=== PATIENT | male | born 1950 | race Caucasian/White ===

== ENCOUNTER → 2023-09-28 06:38 | Day surgery (SDC) | payer OTHER, SELFPAY ==
[2023-09-28 07:32] VITALS: BMI 26.3
[2023-09-28 07:32] LABS: Glucose - Point of Care 106 mg/dl (70-99)
== END ==
LOC: CATH 06:38
PROVIDERS: ATTENDING PHYSICIAN Internal Medicine Cardiovascular Disease; FAMILY PHYSICIAN Family Medicine; OTHER PHYSICIAN Internal Medicine Interventional Cardiology
DX: I25.5 Ischemic cardiomyopathy (principal); I08.8 Other rheumatic multiple valve diseases; I08.3 Combined rheumatic disorders of mitral, aortic and tricuspid valves
CPT/HCPCS: 93312; 93320; 93325; 82962

== ENCOUNTER 2023-10-03 05:53 | Day surgery (SDC) | payer OTHER, SELFPAY ==
[2023-09-18 11:03] VITALS: BMI 26.3
[2023-09-18 11:25] LABS: % Basophils 0.7 % (0-2); % Eosinophils 6.4 % (0-6); % Immature Granulocytes 0.3 % (0-0.5); % Monocytes 6.3 % (1.7-9.3); % Neutrophils 68.3 % (42.2-75.2); Absolute Basophils 0.1 10^3/uL (0-0.2); Absolute Eosinophils 0.5 10^3/uL (0-0.7); Absolute Lymphocytes 1.3 10^3/uL (1.2-3.4); Absolute Monocytes 0.5 10^3/uL (0.1-0.6); Hematocrit 37.6 % (39.0-52.0); Hemoglobin 12.4 g/dL (13.0-18.0); Mean Corpuscular Hgb 28.1 pg (27.0-31.0); Mean Corpuscular Volume 85.3 fL (80.0-94.0); Mean Platelet Volume 9.7 fL (7.4-10.4); Nucleated Red Blood Cells % 0 % (-); Platelet Count 227 10^3/uL (130-400); Red Blood Cell Count 4.41 10^6/uL (4.70-6.10); Red Cell Dist. Width 15.4 % (11.5-14.5); White Blood Cell Count 7.3 10^3/uL (4.8-10.8)
[2023-09-18 11:40] LABS: ALT (SGPT) 13 U/L (0-50); AST (SGOT) 19 U/L (17-59); Albumin 4.5 g/dl (3.5-5.0); Alkaline Phosphatase 107 U/L (38-126); Blood Urea Nitrogen 22 mg/dl (9-20); Calcium 9.5 mg/dl (8.4-10.2); Carbon Dioxide 28 mmol/L (22-30); Chloride 106 mmol/L (98-107); Estimated Creatinine Clearance 41 ml/min; Glucose 118 mg/dl (70-99); Magnesium 2.2 mg/dl (1.6-2.3); Potassium 4.7 mmol/L (3.5-5.1); Sodium 139 mmol/L (135-145); Total Bilirubin 0.6 mg/dl (0.2-1.3); Total Protein 7.1 g/dl (6.3-8.2); eGFR 34.81
[2023-09-18 11:42] LABS: INR 1.09
[2023-10-03] VITALS (10 sets, daily range): BP systolic 139–158; BP diastolic 71–85; BMI 26.5
[2023-10-03 06:51] LABS: Glucose - Point of Care 126 mg/dl (70-99)
[2023-10-03 09:20] LABS: ACT-LR - POC 268 Seconds (116-155)
[2023-10-03 09:42] LABS: ACT-LR - POC 277 Seconds (116-155)
--- NOTE | 2023-10-03 10:56 | ITS.CL.ABL ---
Transcript Clerk - Ablation
Ablation
Procedure Report:
ELECTROPHYSIOLOGY ABLATION STUDY
DATE:: October 03, 2023 REFERRING: Dr. JAKE Melton
INDICATION: Paroxysmal supraventricular tachycardia in the form of atrial fibrillation. Also noted to have paroxysmal atrial flutter
HISTORY: See H and P. Recent depressed ejection fraction after implantation of a dual-chamber pacemaker with a paradoxical response and EF from a left bundle branch area lead. Multivessel stenting and paroxysmal atrial arrhythmias refractory to
Multaq as well as elevated bleeding risk. Dr. Melton and referred him for evaluation for ablation, potential watchman, and potential extraction with reimplantation of PARACHUTE MENDER-D.
ANTIARRHYTHMIC DRUG: Dronedarone
PRE-PROCEDURE JC: No atrial thrombus with ejection fraction 15 to 20% which is new lead depressed
PRESENTING RHYTHM: Atrial pacing with frequent PVCs and morphology similar to the paced morphology
'TIME-OUT': called and confirmed.
SEDATION/ANESTHESIA: provided via the anesthesia department using general anesthesia (LMA).
INTRAVENOUS/ARTERIAL ACCESS:
Right femoral venous - 8Fr
Left femoral venous - 8 Fr, 6 Fr
[id number] stitch to the right and left groins
CHADS-VASC Score:
HAS-Bled Score
PROCEDURE:
1. A decapolar CS catheter was placed within the CS for mapping and pacing. This was also used as the reference catheter for the 3-D map. Utilizing a 10 Bulgarian steerable sheath we performed ablation at the CTI from valve to IVC at 30 W, 42
degrees, 10 to 20 g force and up to 20 second lesions. Bidirectional block was then obtained with interest was conduction time of 190 ms. This was checked at the end of the case with persistent bidirectional block.
2. The intracardiac ultrasound catheter was positioned in the RA to identify the FO for targeting of transseptal puncture, assist in identification of the pulmonary vein ostia, monitoring pre and post ablation pulmonary vein flow velocities,
monitoring for 'bubble' formation during RF application as a sign of thermal injury, and to monitor for pericardial effusion during mapping and ablation procedure. Left atrial size, LV ejection fraction, and pulmonary vein flows were monitored
pre and post ablation procedure. The other valves were inspected and found to be free of significant regurgitation or stenosis.
3. Half of the calculated heparin bolus was administered prior to the first transeptal puncture. Transseptal puncture was performed to diagnose RA and LA pressure so that safety of LA mapping and ablation could be further assessed, and to access
the left atrium and pulmonary veins for mapping and ablation. This entailed advancing an 10 Bulgarian steerable sheath with dilator into the superior vena cava and withdrawing both (monitoring intracardiac ultrasound, fluoroscopy and tip pressure)
with the tip oriented toward the atrial septum. The fossa ovalis was engaged (indicated by sudden displacement of the sheath tip as well as tenting of the fossa seen on intracardiac ultrasound). Left atrial access required a pass with the
Brockenbrough needle extended. Left atrial catheter position was confirmed by pressure monitoring (RA mean pressure 8 mm Hg and LA mean presure 12 mm Hg), LA saturation ( 99 %), as well as fluoroscopy. The sheath was advanced over the dilator and
positioned in the left atrium. The remainder of the calculated heparin bolus was administered and heparin was
infused to maintain ACT at 300 -350 seconds throughout the case.
4. RA pacing was performed via the proximal decapolar poles and LA pacing was performed via the distal decapolr poles.
5. A quadrapolar catheter was first positioned at the His position for His Bundle recording which was tagged via the 3-D Navex sytem, and then passed to the RVA for RV pacing and recording.
6. The ablation catheter was positioned through one of the transeptal seaths and a 20 pole ring mapping catheter was positioned through the second seath into the LA and then the ostia of the LIPV, LSPV, RSPV and the RIPV.
7. Next, a 3-D map was created using Navex. A 3-D reconstructed CT image was compared to the 3-D Navex map to assist in anatomic interpretation, mapping and ablation. The CT image and the NavX image were fused.
8. All 4 pulmonary veins were isolated with an additional extrapulmonary vein lesion given to the roof of the left superior pulmonary vein at the posterior wall for 2 minutes. The pulmonary vein lesions were given for 3 minutes less pulmonary
vein, 2 distinct 3-minute freezing applications left inferior pulmonary vein, 1 distinct 3 and 1 distinct 2.5-minute freezing application of the right superior pulmonary vein and 1 distinct 3 minutes into the freezing application to the right
inferior pulmonary vein. Entrance next block was confirmed and bidirectional block was confirmed within the procedure. The patient was noninducible for any other tachyarrhythmias.
9. We changed programming for the patient's pacemaker than the procedure as pacing at a more rapid rate appeared to suppress the patient's frequent PVCs. We adjusted the programmed DDDR 75-1 30 with suppression of the majority of his PVCs.
Morphology of the PVC was similar to the paced morphology suggesting perhaps irritability from the recent RV lead implantation. 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
considered in the future will need extraction of current hardware and reimplantation.
TOTAL FLOURO TIME: 16.7 minutes
TOTAL RF DURATION: 8 minutes
REVERSAL OF HEPARIN: 35 mg of protamine, slow IV administration
COMPLICATIONS:
None
Intracardiac US shows no pericardial effusion post ablation.
SUMMARY:
Complex left atrial mapping and ablation.
CTI flutter ablation with bidirectional block. Pulm vein isolation of all 4 pulmonary veins. Extrapulmonary lesion to the roof of the left for pulmonary vein outside the left for pulmonary vein as above.
RECOMMENDATIONS:
1. Admit to monitored bed.
2. Resume anticoagulation
3. Discontinue Multaq
4. Repeat echocardiogram in 2 months to assess ejection fraction. We adjusted the patient's device programming to suppress PVCs although has had a detrimental response to the LV septum pacing. Hopefully with discontinuing Multaq, adjusting device
programming to minimize PVCs, and elimination of his age arrhythmias his ejection fraction will improve. 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
traditional coronary sinus LV lead given his detrimental response to prior LV septal pacing. We will assess this at the office visit in 2 months after his ultrasound and I will touch base with Dr. Melton regarding an echo in 6 to 8 weeks.
Copy to: Dr. JAKE Melton
--- NOTE | 2023-10-03 14:33 | W.PN.UPDATE ---
Update Note
Progress Note Update
73 yo WM s/p PVI (same day). He feels good, no cp, sob, radha clears, voiding, amb w/o dizziness, b/l groins c/d/i no HT, EKG AV dual paced. He will stop Multaq and continue metoprolol. He will take his Eliquis at 4pm at home. Activity restrictions
reviewed. He will f/u Dr. Melton in6-8 weeks and have his repeat Echo. He is for d/c home after 3pm.
SUMMARY:
Complex left atrial mapping and ablation.
CTI flutter ablation with bidirectional block. Pulm vein isolation of all 4 pulmonary veins. Extrapulmonary lesion to the roof of the left for pulmonary vein outside the left for pulmonary vein as above.
RECOMMENDATIONS:
1. Admit to monitored bed.
2. Resume anticoagulation
3. Discontinue Multaq
4. Repeat echocardiogram in 2 months to assess ejection fraction. We adjusted the patient's device programming to suppress PVCs although has had a detrimental response to the LV septum pacing. Hopefully with discontinuing Multaq, adjusting device
programming to minimize PVCs, and elimination of his age arrhythmias his ejection fraction will improve. 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
traditional coronary sinus LV lead given his detrimental response to prior LV septal pacing. We will assess this at the office visit in 2 months after his ultrasound and I will touch base with Dr. Melton regarding an echo in 6 to 8 weeks.
Copy to: Dr. JAKE Melton
== END 2023-10-03 15:00 | disposition home or self-care (01) ==
LOC: CATH 05:53
PROVIDERS: ATTENDING PHYSICIAN Internal Medicine Cardiovascular Disease; FAMILY PHYSICIAN Family Medicine
DX: I48.0 Paroxysmal atrial fibrillation (principal); I48.92 Unspecified atrial flutter; I25.10 Atherosclerotic heart disease of native coronary artery without angina pectoris; I10 Essential (primary) hypertension; E11.9 Type 2 diabetes mellitus without complications; K21.9 Gastro-esophageal reflux disease without esophagitis; Z86.010 Personal history of colon polyps; Z79.01 Long term (current) use of anticoagulants
CPT/HCPCS: C1766; C1894; C1730; C2630; C1892; C1759; 36005; 36415; 75820; 76937; 80053; 82962; 83735; 85025; 85347; 85610; 86850; 86900; 86901; 93005; 93655; 93656; C1733; Q9967

== ENCOUNTER → 2024-06-16 09:00 | Outpatient (REF) | payer OTHER, MEDICARE, SELFPAY ==
[2024-06-16 09:10] VITALS: BMI 27.0
[2024-06-16 09:30] LABS: % Basophils 0.5 % (0-2); % Eosinophils 3.3 % (0-6); % Immature Granulocytes 0.3 % (0-0.5); % Lymphocytes 15.3 % (20.5-51.1); % Monocytes 7.9 % (1.7-9.3); % Neutrophils 72.7 % (42.2-75.2); Absolute Eosinophils 0.3 10^3/uL (0-0.7); Absolute Lymphocytes 1.2 10^3/uL (1.2-3.4); Absolute Monocytes 0.6 10^3/uL (0.1-0.6); Absolute Neutrophils 5.6 10^3/uL (1.4-6.5); Hemoglobin 14.9 g/dL (13.0-18.0); Mean Corp Hgb Conc. 33.9 g/dL (33.0-37.0); Mean Corpuscular Hgb 28.7 pg (27.0-31.0); Mean Corpuscular Volume 84.8 fL (80.0-94.0); Mean Platelet Volume 9.5 fL (7.4-10.4); Nucleated Red Blood Cells % 0 % (-); Platelet Count 233 10^3/uL (130-400); Red Blood Cell Count 5.19 10^6/uL (4.70-6.10); Red Cell Dist. Width 12.9 % (11.5-14.5); White Blood Cell Count 7.7 10^3/uL (4.8-10.8)
[2024-06-16 09:36] LABS: INR 1.03; PT 13.8 Sec (11.4-14.6)
[2024-06-16 09:49] LABS: ALT (SGPT) 12 U/L (0-50); AST (SGOT) 18 U/L (17-59); Albumin 4.1 g/dl (3.5-5.0); Alkaline Phosphatase 142 U/L (38-126); Blood Urea Nitrogen 16 mg/dl (9-20); Calcium 9.1 mg/dl (8.4-10.2); Carbon Dioxide 29 mmol/L (22-30); Chloride 104 mmol/L (98-107); Estimated Creatinine Clearance 58 ml/min; Glucose 141 mg/dl (70-99); Potassium 4.4 mmol/L (3.5-5.1); Sodium 143 mmol/L (135-145); Total Bilirubin 0.6 mg/dl (0.2-1.3); Total Protein 6.8 g/dl (6.3-8.2); eGFR 53.07
--- NOTE | 2024-06-26 15:29 | W.PN.UPDATE ---
Update Note
Progress Note Update
Had a phone conversation on Sunday 06/24 with Mr. Evangelista and left a message with his .
I had a follow up conversation with Mr. Evangelista on 06/26 to discuss options. He reiterated his desire to pursue watchman and extraction. I in past have presented alternative option of JACOB clip/surgical LV lead and at this time he is not interested in
pursuing. Communicated our ongoing internal discussions to figure out how to facilitate his insurance issues (as best I can understand) and complete his JACOB implant.
We are re-discussing tomorrow and will keep patient//referring physician (Dr. Melton) in the loop.
== END ==
LOC: SDSPAT 09:00
PROVIDERS: ATTENDING PHYSICIAN Internal Medicine Cardiovascular Disease; FAMILY PHYSICIAN Family Medicine; OTHER PHYSICIAN Internal Medicine Interventional Cardiology
DX: I48.0 Paroxysmal atrial fibrillation (principal)
CPT/HCPCS: 36415; 80053; 85025; 85610; 86850; 86900; 86901; 87070; 93005

== ENCOUNTER → 2024-09-24 13:47 | Outpatient (REF) | payer OTHER, SELFPAY | LOC: HWRCS 13:47 | PROVIDERS: ATTENDING PHYSICIAN Internal Medicine Cardiovascular Disease; FAMILY PHYSICIAN Family Medicine | DX: I50.22 Chronic systolic (congestive) heart failure (principal) | CPT/HCPCS: 93306 ==

== ENCOUNTER 2024-09-26 07:44 | Day surgery (SDC) | payer OTHER, SELFPAY ==
[2024-09-19 10:35] VITALS: BMI 27.7
[2024-09-19 11:23] LABS: % Basophils 0.8 % (0-2); % Eosinophils 6.1 % (0-6); % Immature Granulocytes 0.2 % (0-0.5); % Lymphocytes 21.6 % (20.5-51.1); % Neutrophils 62.3 % (42.2-75.2); Absolute Basophils 0.1 10^3/uL (0-0.2); Absolute Eosinophils 0.4 10^3/uL (0-0.7); Absolute Lymphocytes 1.4 10^3/uL (1.2-3.4); Absolute Monocytes 0.6 10^3/uL (0.1-0.6); Hematocrit 44.3 % (39.0-52.0); Mean Corp Hgb Conc. 33.9 g/dL (33.0-37.0); Mean Corpuscular Hgb 29.3 pg (27.0-31.0); Mean Corpuscular Volume 86.5 fL (80.0-94.0); Mean Platelet Volume 9.4 fL (7.4-10.4); Nucleated Red Blood Cells % 0 % (-); Platelet Count 181 10^3/uL (130-400); Red Blood Cell Count 5.12 10^6/uL (4.70-6.10); Red Cell Dist. Width 12.8 % (11.5-14.5); White Blood Cell Count 6.4 10^3/uL (4.8-10.8)
[2024-09-19 11:37] LABS: ALT (SGPT) 13 U/L (0-50); AST (SGOT) 18 U/L (17-59); Alkaline Phosphatase 120 U/L (38-126); Blood Urea Nitrogen 13 mg/dl (9-20); Calcium 9.3 mg/dl (8.4-10.2); Carbon Dioxide 31 mmol/L (22-30); Chloride 103 mmol/L (98-107); Estimated Creatinine Clearance 54 ml/min; Glucose 117 mg/dl (70-99); INR 1.13; PT 14.8 Sec (11.4-14.6); Potassium 4.7 mmol/L (3.5-5.1); Sodium 139 mmol/L (135-145); Total Bilirubin 1.1 mg/dl (0.2-1.3); Total Protein 6.7 g/dl (6.3-8.2); eGFR 48.85
[2024-09-26] VITALS (11 sets, daily range): BP systolic 110–177; BP diastolic 63–91; BMI 27.8
[2024-09-26 08:32] LABS: Glucose - Point of Care 134 mg/dl (70-99)
--- NOTE | 2024-09-26 08:37 | W.ICD.CONTRA ---
Post ICD/CERTIFIED VETERINARY TECHNICIAN-D
-
History of NC?: Yes
LV Function
Left ventricular function study result?: Ejection Fraction >35% - <40%
ACEI/ARB/ARNI
Patient already on ACEI/ARB/ARNI: Yes
Beta-Delmer
Patient already on Beta Delmer: Yes
--- NOTE | 2024-09-26 12:50 | ITS.CL.ICD ---
Electrician Telephone - ICD
Implantable Cardioverter Defibrillator
Procedure Report:
BiV BANQUET BARTENDER-D
Upgrade from dual chamber PPM to BANQUET BARTENDER-D with ICD Placement:
Mr. Evangelista is a 74 yrs old gentleman with complete heart block s/p dual chamber PPM on 01/10/2023 with severe cardiomyopathy and LVEF od 30% in NYHA class III symptoms on maximally tolerated medical therapy for over 6 months is pacemaker dependent with
100% RV pacing is recommended a primary prevention ICD and BANQUET BARTENDER. He is in need for a BiV pacing and is here in EP lab for an upgrade to cardiac resynchronization therapy.
He has chronic systolic heart failure, due to mixed cardiomyopathy class III CHF despite maximal medical therapy with dropping and LVEF from 55% to 30% with 100% RV paced rhythm. The patient's life expectancy exceeds one year.
Given his persistent severe LV systolic dysfunction (LVEF of 30%) with 100% paced rhythm, he is in need for a BiV pacing and is here in EP lab for an upgrade to cardiac resynchronization therapy with defibrillator (BANQUET BARTENDER-D).
Indications: 100% RV paced rhythm with Heart failure with reduced ejection fraction with NYHA class III symptoms.
Date of the Procedure: 09/26/2024
Pre-Operative Diagnosis: Mixed cardiomyopathy and severe systolic heart failure and pacemaker dependent
Post-Operative Diagnosis: Mixed cardiomyopathy and severe systolic heart failure and pacemaker dependent
Procedure Performed: UPGRADE to BANQUET BARTENDER-D FROM DUAL CHAMBER PACEMAKER.
Performing Physician:
Dawit Narayan MD
Anesthesia:
See anesthesia records
Detailed Description of the Procedure:
The patient was identified using hospital identification and informed consent obtained for the procedure. The risks were explained to the patient and the family including, but not limited to: Bleeding, infection, arrhythmia, stroke,
vascular/cardiac/lung puncture, surgery, pacemaker dependency/device malfunction. All questions were answered.
A surgical pause was performed in accordance with hospital regulations. Anesthesia service provided sedation as reported separately. Antibiotics administered IV for risk of bacterial colonization. After obtaining informed and written consent, the
patient was brought to the electrophysiology laboratory.
The PPM was interrogated and was 100% paced with PPM dependency. The PPM was switched to DOO for the procedure.
A timeout was performed immediately before the procedure. The left chest was prepped from the nipple to the angle of the jaw with chlorhexidine, and draped following sterile technique in usual routine.�
A peripheral venogram was done that showed axillary vein occluded with collaterals. The decision was made to proceed with venoplasty.
Following infiltration with local anesthetic subcutaneously using 1% lidocaine / bupivacaine. The axillary vein was accessed using micropuncture but guidewire could not be crossed through the occluded section.
The old PPM generator was accessed and the adhesions were removed with care to avoid damage to the leads. The PPM capsule was cut to access the generator. It was removed from the body. The Weitlaner retractor was placed in the incision and used as
access to skin for unipolar pacing.
Axillary vein and Subclavian vein Venoplasty:
The subclavian vein was accessed beyond the occluded vein using a micropuncture apparatus just below the clavicle. The guidewire was placed to the SVC and to the IVC. There was extensive scarring present and a sheath could not be advanced. The
scarring was cut using bovie and plasma blade.
Then using a cook needle, another access was obtained from the pocket to the areaof the subclavian that was opened. A sheath was not able to go over the guidewire. Using various dilators and sheaths, the fibrotic tissue was slowly dilated to
accommodate the 12Fr dilator. A 9Fr peelaway sheath was then placed over the guidewire to the venous system.
ICD placement:
The right ventricular defibrillator lead was advanced into the RV cavity and secured in RV apical septal position with an active fixation technique. There was excellent sensing, pacing, and impedance from the leads, with no diaphragmatic stimulation
at 10 V output.�Bovie cautery, antibiotics, and fluoroscopy were used.
The ICD lead was secured to the underlying fascia at the entry site using 0-silk suture around the sleeves.
During pacing, QRS complex was favorable, with a narrow QRS configuration during BiV pacing. It was deemed ideal for biventricular pacing. No diaphragmatic stimulation was noted at maximal output pacing at any poles. The threshold was below 1V and
was deemed acceptable.
The guiding sheath was removed from the vein and then from the body without change in lead position, impedance, sensing, or capture. Short VT interval permitted nonadaptive BANQUET BARTENDER pacing with BiV pacing. The lead was sutured to the underlying
pectoralis fascia with 2-0 Ethibond stitches.
The LV lead was placed into the new pulse generator and was paced. The old leads were individually removed and tested. The leads were attached to the pulse generator in standard configuration with acceptable sensing and threshold parameters.
Pocket revision:
The new ICD generator is bigger and previous pocket was sclerosed. The capsule of the old pocket was cut and the pocket was extended to accommodate the bigger generator. Excess scar tissue was removed. The pocket was irrigated with antibiotic
solution; the pocket was inspected with no active bleeding noted. The device and the leads were placed in the pocket.
A Tyrx antibiotics envelop was placed around the generator and the leads.
Deep subcutaneous tissues were closed with 2-0 VLoc sutures; intermediate subcutaneous tissue was reopposed using a running 2-0 V loc suture, and the dermis was reopposed using a running 4-0 V loc subcuticular suture.
Sponge counts / sharp counts were appropriate.
Procedure End:
The procedure was tolerated well. Aquacel bandaged was applied.
A pressure dressing was applied.
Estimated Blood loss:
5 cc
Specimens Removed:
No cultures and no specimens were obtained. No intraoperative pathology was identified.
Urine output:
None
Packs / Drains/ Tubes:
None
Instrument / Sponge Count Correct:
Yes
Flouro time:
15.8 min / 3.05Ecas1
Complications of the Procedure:
None
Condition of Patient at Time of Transfer:
Hemodynamically stable with no neurological or vascular compromise.
Device information:�
Generator: [email or web address]; Model: RFLB5E0; Serial # [id number]
����������� Implanted: 09/26/2024
����������� Atrial Lead: [employer]; Model: 5076-52; Serial # [id number]
����������������������� Measured data in the right atrium was sensing of 3.0 mV and, impedance of 418ohms and threshold of 0.75 V at 0.4ms�
����������� Implanted: 01/10/2023
����������� LV conduction system pacing lead: Medtronic; Model: 3830-69; Serial # [id number]
����������������������� Measured data on the LBB lead was impedance of 632 ohms and threshold of 0.5 V at 0.4ms
����������� Implanted: 01/10/2023
����������� RV Lead: Medtronic; Model: 6935M-62; Serial # [id number]
����������������������� Measured data on the RV lead no sensing with no underlying rhythm, impedance of 817 ohms and threshold of 0.5 V at 0.4ms. HVB impedance: 67 ohm
����������� Implanted: 09/26/2024
PROGRAMMING PARAMETERS:�
Mk parameter settings were DDD 60-130 �
����������� Paced AV interval: 130ms
����������� Sensed AV interval: 100 ms.
����������� Rate Adaptive A-V Interval: on
Tachy parameter settings:
����������� SVT discrimination: On
����������� AF/AFl: On
����������� SVT limit: 260 msec
����������� VT zone:
Slow VT: 150-188bpm - Monitor
����������������������� Fast VT/ VF: >188 bpm - Shock� x6
�
Summary:
Successful upgrade from dual chamber pacemaker to BANQUET BARTENDER-D � Medtronic defibrillator
Successful venoplasty of axillary and subclavian vein.
Results/Recommendations:
-Please follow up CXR�
1. Please discharge patient with adequate pain control�
Instructions to be given to patient:�
- Please follow up with [facility] at [address] [place] [address] ([phone]) to get your wound checked in 2 weeks of your discharge.
- Do not wet incision site until after it is evaluated at cardiology clinic. No baths or showers until then. Sponge baths / showers are OK but dab dry the dressing after it is wet.�
- Allow 'steri strips' to fall off on their own�
- Do not lift left elbow above shoulder, particularly with sudden jerking movements, for 1 month�
- Do not lift anything weighing more than 5 pounds with the left arm for 1 month�
- If you notice any fevers, shortness of breath, lightheadedness, chest pain, or worsening swelling in the wound site, please contact the arrhythmia clinic, contact your heat treater helper, or present to the hospital for evaluation.�
Dawit Narayan MD
Electrophysiology
--- NOTE | 2024-09-26 13:46 | CM ---
Chart reviewed. Patient is independent of ADLS, lives with his in a 2 [address], 3 [address]UNJAN, 0 DME. Plan is for the patient to return home. CM to follow
--- NOTE | 2024-09-26 16:40 | PTCARENOTE ---
received pt post ICD. left chest wall dressing cdi. pt offers no complaints at this time. pt is av paced on the monitor, hr in the 60s, vss. resting comfortably in bed. at bedside visiting. both educated on plan of care and verbalized
understanding. call sanchez within reach.
[2024-09-26] MEDS: ANCEF 5 IV (17:40)
--- NOTE | 2024-09-26 20:00 | PTCARENOTE ---
Assumed care of pt from prev nsg shift; Pt AAOx3 w/no c/o CP or SOB. Pt's VSS w/HR 60 & BP 144/72. Pt is AV-paced & V-paced at times on telemetry monitoring. Pt w/L chest wall ICD site w/dressing C/D/I w/no signs or symptoms of bleeding or hematoma.
Pt w/call sanchez within reach & no addtl needs at this time.
[2024-09-26] MEDS: LIPITOR 40 MG PO (22:51)
[2024-09-26] MEDS: COLACE 100 MG PO (22:51)
[2024-09-26] MEDS: PROTONIX PO (22:52)
[2024-09-27 00:40] VITALS: BMI 27.8
[2024-09-27] MEDS: ANCEF 5 IV (00:57)
[2024-09-27 05:45] VITALS: BP 162/86
[2024-09-27 06:53] LABS: Hematocrit 40.8 % (39.0-52.0); Hemoglobin 14.1 g/dL (13.0-18.0); Mean Corp Hgb Conc. 34.6 g/dL (33.0-37.0); Mean Corpuscular Hgb 29.3 pg (27.0-31.0); Mean Corpuscular Volume 84.8 fL (80.0-94.0); Mean Platelet Volume 9.6 fL (7.4-10.4); Platelet Count 175 10^3/uL (130-400); Red Blood Cell Count 4.81 10^6/uL (4.70-6.10); Red Cell Dist. Width 12.8 % (11.5-14.5); White Blood Cell Count 9.8 10^3/uL (4.8-10.8)
[2024-09-27 07:20] LABS: Blood Urea Nitrogen 20 mg/dl (9-20); Calcium 9.5 mg/dl (8.4-10.2); Carbon Dioxide 26 mmol/L (22-30); Chloride 101 mmol/L (98-107); Estimated Creatinine Clearance 58 ml/min; Glucose 127 mg/dl (70-99); Magnesium 1.8 mg/dl (1.6-2.3); Potassium 4.6 mmol/L (3.5-5.1); Sodium 137 mmol/L (135-145); eGFR 53.07
[2024-09-27 07:23] VITALS: BP 152/63
[2024-09-27] MEDS: TOPROL XL 50 MG PO (08:29)
[2024-09-27] MEDS: FARXIGA 10 MG PO (08:29)
[2024-09-27] MEDS: ELIQUIS 5 MG PO (08:29)
[2024-09-27] MEDS: PROTONIX 40 MG PO (08:30)
[2024-09-27] MEDS: COZAAR 25 MG PO (08:30)
--- NOTE | 2024-09-27 09:04 | W.PN.CD ---
Addendum entered and electronically signed by Bharath Mcdonough MD 09/27/24 09:59:
Exam with RRR, no murmurs, no edema.
Addendum entered and electronically signed by Bharath Mcdonough MD 09/27/24 09:55:
74 yo male with PMH of ICM EF 30%, chronic HFrEF, CKD3a is admitted s/p BiV ICD upgrade. Doing well without complication. Hgb 14.1, Cr 1.4. Tele: no arrhythmia.
Discharge planning.
Original Note:
Today's Communication / Plan
-
d/c home
Impression / Plan
-
s/p upgrade to BIV INFORMATION TECHNOLOGY INSTRUCTOR-D:
-tele stable
-CXR no pneumothorax
-incision no hematoma
-s/p successful venoplasty of axillary and subclavian vein.
-reviewed incision care instructions and L arm precautions.
-CXR stable, tele stable
-site no hematoma
Chronic HFrEF:
-con't current GDMT
dispo: f/u for IC check [address] 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
Physical Exam
Vital Signs/Labs
Vital Signs
Temp Pulse Resp BP Pulse Ox
97.9 F 60 18 152/63 96
09/27/24 07:23 09/27/24 07:45 09/27/24 07:23 09/27/24 07:23 09/27/24 08:33
09/26/24 09/27/24 09/28/24
06:59 06:59 06:59
Actual Weight 103.419 kg
09/27/24 06:02
09/27/24 06:02
PT 14.8 Sec (11.4-14.6) H 09/19/24 10:43
INR 1.13 09/19/24 10:43
Magnesium 1.8 mg/dl (1.6-2.3) 09/27/24 06:02
Physical Exam
Constitutional: No acute distress
Cardiovascular: Rhythm & rate is regular and Pedal edema is absent
Respiratory: Respiratory effort normal and Lungs clear to auscul.
Neuro/Psych: AO x 3
Other: Cardiac Device Site (L pectoral incision well approximated , no hematoma. )
Data Reviewed
-
Date of Service: September 27, 2024
EKG: Tracing Personally Visualized and interpreted (ASVP 64 bpm) and Other (Tele: EXCAVATING CONTRACTOR 60's )
Labs: Labs Reviewed by me
--- NOTE | 2024-09-27 09:24 | W.DS.TRANS ---
DC Summary - Seafood Harvester
-
Discharge Instructions:
Sleep Apnea Risk Intermediate
Discharge Diagnosis/Procedures Bi-V ICD upgrade
Diet Low Cholesterol,2 Gram Sodium,Restrict fluids to
48 oz
Activity No strenuous activity
Additional Activity See attached instructions.
Driving Restrictions No driving for 1 week
Bathing Restrictions OK to Shower
Instructions:
Stand-Alone Forms: DC Inst - Implanted Device
Changes to Home Medications: No
Discharge Medications:
DC Medications w/original date entered in [facility]
apixaban 5 mg tablet (Eliquis) 5 mg PO BID blood thinner 09/28/23
ascorbic acid (vitamin C) 500 mg tablet (Vitamin C) 1,000 mg PO HS Supplement 09/28/23
atorvastatin 40 mg tablet 40 mg PO HS CHOLESTEROL 09/28/23
bumetanide 1 mg tablet 1 mg PO MOTH 09/28/23
dapagliflozin propanediol 10 mg tablet (Farxiga) 10 mg PO DAILY Heart Failure & DM 09/28/23
folic acid 800 mcg tablet 0.8 mg PO HS Supplement 09/28/23
losartan 25 mg tablet 25 mg PO DAILY hypertension 09/28/23
pantoprazole 40 mg tablet,delayed release (Protonix) 40 mg PO HS GERD 09/28/23
cyanocobalamin (vitamin B-12) 1,000 mcg tablet 1,000 mcg PO HS 10/03/23
docusate sodium 100 mg capsule (Stool Softener) 100 mg PO HS 09/26/24
metoprolol succinate 50 mg tablet,extended release 24 hr 50 mg PO DAILY 09/26/24
Home Medication Changes
Pending Results: No
--- NOTE | 2024-09-27 10:53 | PTCARENOTE ---
Pt seen by and Afshan Sanderson, WADE. Pt denies any discomfort. Telemetry and IV device removed. Discharge instructions reviewed with pt and his regarding CHF guidelines, wound care, activity and driving restrictions, pain management,
medications, reporting cares and concerns and follow up appt's. Excellent understanding taught back to this RN . Pt escorted out via wheelchair and discharged to home.
== END 2024-09-27 10:35 | disposition home or self-care (01) ==
LOC: CATH 07:44
PROVIDERS: Nurse Practitioner Adult Health; ATTENDING PHYSICIAN Internal Medicine Cardiovascular Disease; FAMILY PHYSICIAN Family Medicine; OTHER PHYSICIAN Internal Medicine Interventional Cardiology
DX: I13.0 Hypertensive heart and chronic kidney disease with heart failure and stage 1 through stage 4 chronic kidney disease, or unspecified chronic kidney disease (principal); I42.9 Cardiomyopathy, unspecified; I45.9 Conduction disorder, unspecified; R00.1 Bradycardia, unspecified; D50.9 Iron deficiency anemia, unspecified; Z87.19 Personal history of other diseases of the digestive system; E78.5 Hyperlipidemia, unspecified; E11.22 Type 2 diabetes mellitus with diabetic chronic kidney disease; I25.10 Atherosclerotic heart disease of native coronary artery without angina pectoris; I48.0 Paroxysmal atrial fibrillation; I50.22 Chronic systolic (congestive) heart failure; I65.29 Occlusion and stenosis of unspecified carotid artery; I48.92 Unspecified atrial flutter; K21.9 Gastro-esophageal reflux disease without esophagitis; M19.90 Unspecified osteoarthritis, unspecified site; Z95.5 Presence of coronary angioplasty implant and graft; Z79.899 Other long term (current) drug therapy; Z79.01 Long term (current) use of anticoagulants; Z79.84 Long term (current) use of oral hypoglycemic drugs; Z87.891 Personal history of nicotine dependence; N18.31 Chronic kidney disease, stage 3a
CPT/HCPCS: 33249; 33233; 36415; 71045; 71046; 80048; 80053; 82962; 83735; 85025; 85027; 85610; 86850; 86900; 86901; 93005; C1769; C1777; C1882; C1892; C1894; Q9967

== ENCOUNTER → 2024-10-08 12:07 | Outpatient (REF) | payer OTHER, SELFPAY | LOC: RAD 12:07 | PROVIDERS: ATTENDING PHYSICIAN Internal Medicine Cardiovascular Disease; FAMILY PHYSICIAN Family Medicine; OTHER PHYSICIAN Internal Medicine Cardiovascular Disease; OTHER PHYSICIAN Internal Medicine Interventional Cardiology | DX: Z95.810 Presence of automatic (implantable) cardiac defibrillator (principal); I42.9 Cardiomyopathy, unspecified | CPT/HCPCS: 71046 ==